=== PATIENT | female | born 1985 ===

== ENCOUNTER 2025-05-04 08:22 | Outpatient (REF) | payer MEDICARE, MEDICAID, SELFPAY ==
--- OUTSIDE RECORDS SUMMARY | 2025-05-05 08:45 | XMS_ITS | Clinical Summary ---
Author Organization [facility] Address [address] [place] [address] [place] [place] [phone] Phone Care Team Providers Care Eligibility Counselor Name Role Phone Roc Mesa NP Primary Care Provider Allergies Active Allergy Reactions Criticality Noted Date Comments Latex 05/08/2018 Medications OXcarbazepine (TRILEPTAL) 300 MG tablet Take 300 mg by mouth 2 (two) times a day. Active albuterol 90 mcg/actuation inhaler inhale TWO puffs EVERY FOUR hours Active amoxicillin (AMOXIL) 500 MG capsule Take 1 capsule by mouth 2 (two) times a day. 5 Active ARIPiprazole (ABILIFY) 5 MG tablet Take 5 mg by mouth every morning. Active WELLBUTRIN SR 200 mg SR 12 hr tablet 5 Active chlorhexidine (HIBICLENS) 4 % external liquid Apply 1 application FOUR TIMES DAILY by topical route 5 Active cholecalcifero l (VITAMIN D3) 2,000 unit capsule TAKE 1 CAPSULE BY MOUTH EVERY WEEK FOR 30 DAYS 4 Active ibuprofen (ADVIL,MOTRIN) 800 MG tablet 3 Active mupirocin (BACTROBAN) 2 % ointment APPLY TO THE AFFECTED AREA(S) THREE TIMES DAILY Active omeprazole (PRILOSEC) 20 MG capsule take 1 capsule by mouth every day for 90 days 4 Active propranoloL (INDERAL) 40 MG immediate release tablet Take 1 tablet by mouth 2 (two) times a day. 5 Active simethicone (MYLICON) 80 mg chewable tablet TAKE 1 TABLET BY MOUTH FOUR TIMES DAILY AFTER meals FOR 15 DAYS 5 Active gabapentin (NEURONTIN) 300 MG capsule Take 300 mg by mouth 3 (three) times a day. 04/12/20 Discontin ued(No longer taking) cloNIDine HCl (CATAPRES) 0.1 MG tablet Take 0.1 mg by mouth every 8 (eight) hours. 04/12/20 Discontin ued(No longer taking) buprenorphine- naloxone (SUBOXONE) 4-[address] 1 Film under the tongue daily. 04/12/20 Discontin ued(No longer taking) trazodone/diet daniel supp. no.8 (TRAZAMINE ORAL) Take by mouth. 04/12/20 Discontin ued(No longer taking) traZODone (DESYREL) 100 MG tablet Take 200 mg by mouth nightly. 04/12/20 Discontin ued(No longer taking) Active Problems Problem Noted Date Diagnosed Date Class 3 severe obesity due t o excess calories with serious comorbidity and body mass index (BMI) of 50.0 to 59.9 in adult 04/12/2025 Osteonecrosis of left hip 04/12/2025 Anxiety 10/29/2023 Lymphedema 10/29/2023 Systolic murmur 10/29/2023 Thrombocytopenic disorder 10/29/2023 Asthma 07/30/2023 Essential hypertension 04/03/2023 Obstructive sleep apnea syndrome 05/18/2020 Bipolar disorder 02/11/2019 Gastroesophageal reflux disease 02/11/2019 Lumbar radiculopathy 02/11/2019 Resolved Problems Problem Noted Date Diagnosed Date Resolved Date Morbid obesity 02/11/2019 04/12/2025 Encounters Date Type Department Care Team Description 04/12/2025 11:56 AM EDT - 04/12/2025 11:59 PM EDT Hospital Encounter [address] [address] Semaj Hawk MD Discharge Disposition: Home or Self Care 04/12/2025 11:15 AM EDT Office Visit [facility] [address] [place] [phone] Semaj Hawk MD Osteonecrosis of left hip (Primary Dx); Pain; Class 3 severe obesity due to excess calories with serious comorbidity and body mass index (BMI) of 50.0 to 59.9 in adult; Obstructive sleep apnea syndrome; Bipolar affective disorder, remission status unspecified from Last 3 Months Social History Tobacco Use Types Packs/Day Years Used Date Smoking Tobacco: Some Days Cigarettes Smokeless Tobacco: Never Tobacco Cessation:Ready to Q uit: Not Asked; Counseling Given: Not Answered Comments:In the process of quitting Alcohol Use Standard Drinks/Week Comments No 0 (1 standard drink = 0.6 oz pur e alcohol) Education Answer Date Recorded Are you interested in more education? Not on kirill e 02/18/2025 Are you concerned about learning? Not on file 02/18/2025 No 02/18/2025 No 02/18/2025 Digital Access Answer Date Recorded No 02/18/2025 No 02/18/2025 Reliable internet access at home? Not on file 02/18/2025 Device with a working camera? Not on file Comments Unknown Sex and Gender Information Value Date Recorded Sex Assigned at Female 05/08/2018 11:09 AM EST Legal Sex Female 10:28 PM EDT Gender Identity Female 05/08/2018 11:09 AM EST Sexual Orientation Straight 05/08/2018 11 :09 AM EST Last Filed Vital Signs Vital Sign Reading Time Taken Comments Blood Pressure 146/92 05/08/2018 2:04 PM EST Pulse 94 05/08/2018 2:04 PM EST Temperature 36.9 C (98.4 F) 05/08/2018 2:04 PM EST Respiratory Rate 14 05/08/2018 2:04 PM EST Oxygen Saturation 98% 05/08/2018 2:04 PM EST Inhaled Oxygen Concentration - - Weight 131.1 kg (289 lb) 05/08/2018 11:05 AM EST Height 174 cm (5' 8.5 ) 05/08/2018 11:05 AM EST Body Mass Index 43.3 05/08/2018 11:05 AM EST Plan of Treatment Upcoming Encounters Date Type Department Care Team (Late st Contact Info) Description 08/12/2025 11:00 AM EST Office Visit [facility] Care [address] [place] [address] Marianna Petersen, CHIEF CARDIOPULMONARY TECHNOLOGIST [address] [facility], [address]nd [place] [address] [email or web address] Health Maintenance Due Date Last Done Comments BLOOD PRESSURE 1984 DEPRESSION SCREENING 1996 SMOKING Hx and SMOKELESS TOBACCO SCREENING 1997 HEPATITIS C SCREENING 2002 HIV ONE-TIME SCREENING (18-65 YEARS) 2002 PAP SMEAR 2005 PNEUMOCOCCAL VACCINES (0-49 years) (2 of 2 - PCV) 04/14/2014 04/14/2013, 05/15/2010 MAMMOGRAM 2024 INFLUENZA VACCINE (#1) 2025 , 02/29/2020, 04/14/2013, Additional history exists COVID-19 VACCINE ( season) 2025 01/24/2022, 05/17/2021, 07/27/2020, Additional history exists Adult Td,Tdap Booster 11/15/2025 11/16/2015 , 09/01/2009, 02/28/2007 HEPATITIS A VACCINES Aged Out No long er eligible based on patient's age to complete this topic HIB VACCINES Aged Out No longer eligi ble based on patient's age to complete this topic MENINGOCOCCAL VACCINES (ACWY) Aged Out No longer eligible based on patient's age to complete this topic MENINGOCOCCAL VACCINES (B) Aged Out N o longer eligible based on patient's age to complete this topic Medical Devices Not on file Procedures Procedure Name Priority Date/Time Associated Diagnosis Comments XR HIP 2 VW LEFT PLUS PELVIS Routine 04/12/2025 12:12 PM EDT Pain from Last 3 Months Results * XR HIP 2 VW LEFT PLUS PELVIS (04/12/2025 12:12 PM EDT) Narrative SYSTEMGENERATED, DOCUMENTATION - 04/12/2025 12:12 PM EDT This image report has been auto-finalized and has not been read by a Radiologist. Interpretation has been included in the provider encounter note for this date of service. Semaj Hawk MD IMG XR PELVIS Final Result from Last 3 Months Insurance [place] & B Member Subscriber Plan / Payer (Ef fective 2023-) Name:Courtney Reyes Member ID:[id number] Relation to Subscriber:Self Name:Courtney Reyes Subscriber ID:[id number] Payer ID:[id number] Group ID:Not on file Type:Medicare Address: [facility] [employer] [email or web address] [address] [place] [address] [place] A [place] B Care Teams Eligibility Counselor Relationship Specialty Start Date End Date Roc Mesa NP [address] [address] PCP - General Nurse Practitioner 02/18/25 Additional Source Comments The information contained in this document represents components of the legal health record. It is not the complete legal health record.[facility]
--- OUTSIDE RECORDS SUMMARY | 2025-05-05 08:45 | XMS_ITS ---
Author Name [facility] Organization Unknown Encounters Encounter Type Encounter Reason Primary Diagnosis Location Date Ambulatory [facility] [place] 05/13/2023 Ambulatory [facility] [place] 04/08/2023 Ambulatory [facility] [place] 03/04/2023 Ambulatory [facility] [place] 01/22/2023
--- OUTSIDE RECORDS SUMMARY | 2025-05-05 08:46 | XMS_ITS | Data Portability ---
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 Yes-weight loss surgery program Referred? AYANNA ALEXANDER-obesity Pt reason for working with nutrition: Struggled with weight all of her life, August fell and broke her leg unable to walk, hip problems-weight loss Misc: groin/hip injury- MRI January 16 to determine if hip or back, prediabetic-hop ing to get on Ozempic (insurance not allowing at this time) Weight history (in pounds): 400 lbs Alimentary/dige stion: loose stool, acid reflux (on medication) Food allergies/intol erances: Supplements: Living environment: mom and two siblings Shops? mom/ Courtney Cooks? mom Diet history: Breakfast: 2 hb eggs Snack: yogurt- flavored, low fat, low annalise Lunch: salad tuna or chx- cukes, griffin pep, onions-leafy greens, honey balsamic Snack: yogurt again, Dinner: meat, veggies Snack: popcorn Beverages: water w crystal light, avoiding juices and sodas General comments: no longer eating out, cut out bread, pasta, starches, keeping lean proteins, skips breakfast, sense this change feels better overall Exercise: mostly immobile due to groin injury-does short walks, seated bike, weights Sleep: Stress levels: High due to current health Barriers/challe nges: immobile, poor relationship with food Goals: 1. Do not skip meals 2. Balance all meals w lean protein, veggie/fruit, healthy fat and complex carbs 1-2 servings/day 3. Seated weight training to support lean muscle growth and enhance metabolic response Education: Sustainable weight loss, metabolic adapting General impression: Courtney is a37 yo female looking to lose weight. She has a long history of dieting and struggling to lose weight. She recently suffered a leg and ankle injury that turned into a groin injury and is immobile-will likely need surgery and wants to lose weight prior to, as well as support her joint health w weight loss. 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 F/U in 2 weeks Plan: Support a sustainable and healthy weight loss Handouts: Recommendations : See above goals Expected compliance: Good casey Not available 01/06/2023 09:26:34 01/20/2023 01/20/2023 Nutrition Follow-Up Weight change: Health changes: Just received results from MRI-found she has osteoporosis in her hips-looking for nutritional intervention for supporting bone health Living environment changes: Diet history: Did not discuss in depth today-Coutrney was very distracted with her MRI results. Wanted to vent about this today Miscellaneous: Barriers/challe nges: Difficult relationship with food and dieting. Has a complex medical history that keeps her limited Education: Sustainable weight loss, metabolic adapting Plan: Support a sustainable and healthy weight loss-discuss bone health and nutrition at next session Handouts: Recommendations : See above goals Impressions/pro sathya: Courtney would not disclose her progress at our visit today-she said she was too distracted with her recent diagnosis of osteoporosis. I did not want to push her as she seemed upset, but I do have the impression she has not been working on some of the goals set at our initial assessment. I told her at our next session I would like to discuss more in-depth her dietary progress and incorporate nutrition for bone health-she was open to this. F/U in 2 weeks Expected compliance: Fair casey Not available 01/20/2023 08:39:46 Plan of Treatment Reminders Order Date Submit Date Provider Last Modified By Organization Details Last Modified Time Details Appointments None recorded. Lab HbA1c (hemoglobin A1c), blood 2022 023 [facility], [address] [place], [address], 3 13:07:10 TSH, serum or plasma 2022 023 [facility], [address] [place], [address], 3 17:14:07 BMP, serum or plasma 2022 023 [facility], [address] [place], [address], 3 12:57:16 HbA1c (hemoglobin A1c), blood 2022 023 In-Office Order, Internal Use Only DO Not Attach Compendium DO Not Attach Compendium, Do Not Delete/merge, [id number] 3 10:25:22 Referral nutritionis t/dietitian referral 2022 023 [email or web address] Harvey Bradzi HIMS CLERK, [address] [facility], [facility], [place], [address], 3 15:41:06 Procedures None recorded. Surgeries None recorded. Imaging None recorded. Medication Orders Wegovy 0.25 mg/0.5 mL subcutaneou s pen injector 2022 023 [facility], [address] [place] [address], [id number], 3 15:43:38 metformin 500 mg tablet 2022 023 [facility], [address] [place] [address], [id number], 3 15:43:44 lisinopril 10 mg tablet 2022 023 [email or web address] 3 [facility], [address] [place] [address], [id number], 3 13:26:07 Ozempic 0.25 mg or 0.5 mg (2 mg/3 mL) subcutaneou s pen injector 2022 023 [facility], [address] [place] [address], [id number], 10:27:29 Patient TargetsNo targets recorded. Patient Instructions Encounter Date Encounter Id Patient Instructions Last Modified By Organization Details Last Modified Time 01/03/2023 [id number] high blood pressure: care instructions Not available 01/03/2023 10:27:19 learning about high blood pressure Not available 01/03/2023 10:27:19 When You Want to Lose Weight: Care Instructions Not available 01/03/2023 10:27:20 TEACHING PHYSICIAN NOTE: This patient was seen under my direction, I reviewed the patient history and examination. I discussed the case with the resident and I agree with the assessment and plan. Eliazar Hairston MD [email or web address] Not available 01/03/2023 12:19:29 01/20/2023 [id number] Goals: 1. Do not skip meals 2. Balance all meals w lean protein, veggie/fruit, healthy fat and complex carbs 1-2 servings/day 3. Seated weight training to support lean muscle growth and enhance metabolic response 4. Incorporate dark leafy greens, nuts, eggs, legumes, lean protein and dairy that can be tolerated for bone health casey Not available 01/20/2023 08:41:13 02/05/2023 [id number] high blood pressure: care instructions Not available 02/05/2023 16:43:49 learning about high blood pressure Not available 02/05/2023 16:43:50 Discussed w resident by phone. Recent fall, fx ankle, hip pain, more disabled and needing wheelchair. 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 [email or web address] Not available 02/06/2023 15:08:04 03/18/2023 [id number] When You Want to Lose Weight: Care Instructions [email or web address] Not available 03/18/2023 15:42:32 I certify that this resident saw this patient under my supervision; and that the history, exam, assessment, orders and plans were reviewed and generally agreed upon concerning this visit. 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 Refer ral for Morbid obesity Referring Physician: Ayanna Alexander, Internal Medicine, Encounter Date: 01/03/2023 Results Created Date Observation Date Name Description Value Unit Range Abnormal Flag Note LastModifiedBy Organization Detail LastModifiedTime 01/04/2001/03/2023 HbA1c (hemo globi n A1c), blood HbA1c 5.6% Not Available In-Office Order Internal Use Only DO Not Attach Compendium DO Not Attach Compendium, Do Not Delete/merge, [id number] 01/03/2023 09:53:24 01/14/2001/13/2023 BASIC METAB OLIC PANEL sodium 141 mEq/L 135-14 5 normal Not Available [address], [address], 01/13/2023 12:57:16 01/14/2001/13/2023 BASIC METAB OLIC PANEL potassium 4.5 mEq/L 3.5-5. 1 normal Not Available [address], [address], 01/13/2023 12:57:16 01/14/2001/13/2023 BASIC METAB OLIC PANEL chloride 108 mEq/L 98-112 normal Not Available [address], [address], 01/13/2023 12:57:16 01/14/2001/13/2023 BASIC METAB OLIC PANEL carbon dioxide 28 mEq/L 20-32 normal Not Available [address], [address], 01/13/2023 12:57:16 01/14/20 23 01/13/2023 BASIC METAB OLIC PANEL anion gap 5 mEq/L 5-15 normal Not Available [address], [address], 01/13/2023 12:57:16 01/14/20 23 01/13/2023 BASIC METAB OLIC PANEL blood urea nitrogen (BUN) 15 mg/dL 4-18 normal Not Available [address], [address], 01/13/2023 12:57:16 01/14/20 23 01/13/2023 BASIC METAB OLIC PANEL creatinine 0.71 mg/dL 0.00-1 .20 normal Not Available [address], [address], 01/13/2023 12:57:16 01/14/20 23 01/13/2023 BASIC METAB OLIC PANEL est.glomerul ar filtration rate > 60 Units : mL/mi n/1.7 3 m2 Estim ated GFR (eGFR ) shoul d not be used for patie nts with acute kidne y injur y or ESRD (crea tinin e shoul d be at stead y state and stabl e to use). eGFR is calcu lated using the 2009 CKD-E PI creat inine equat ion, which is now the recom karen d equat ion to estim ate GFR based on creat inine per lates t KDIGO (Kidn ey Disea se Impro ving Globa l Outco mes) Guide lines . KDIGO recom mends CKD now be class ified based on cause , GFR categ ory, and album inuri a categ ory. GFR categ ories will not be repor aktiuska by the lab for G1 or G2 (eGFR >60). GFR categ ories shoul d be assig alec as: eGFR 45-59 = G3a (mild ly to moder ately decre ased) , eGFR 30-44 = G3b (mode ratel y to sever martinez decre ased) , eGFR 15-29 G4 (pk rely decre ased) , eGFR< 15 G5 (kidn ey failu re). Not Available [address], [address], 01/13/2023 12:57:16 01/14/20 23 01/13/2023 BASIC METAB OLIC PANEL glucose 93 mg/dL 70-100 normal Fasti ng Refer ence Inter landon: 70-10 0mg/d L Non-f astin g Refer ence Inter landon: 70-14 0mg/d L Not Available [address], [address], 01/13/2023 12:57:16 01/14/20 23 01/13/2023 BASIC METAB OLIC PANEL calcium 8.8 mg/dL 8.1-10 .4 normal Not Available [address], [address], 01/13/2023 12:57:16 03/18/20 23 03/18/2023 THYRO ID STIMU LATIN G HORMO NE thyroid stimulating hormone 1.94 uIU/m L 0.35-4 .94 normal Pleas e note new refer ence range . Not Available [address], [address], 03/18/2023 17:14:07 03/18/20 23 03/20/2023 HEMOG LOBIN A1C hemoglobin A1C 5.6 % 4.4-6. 3 normal Not Available [address], [address], 03/20/2023 13:07:10 01/10/20 23 01/09/2023 US, duple x, venou s, lower extre mity, unila teral [facility] [employer] [facility] [employer] [facility] [address] [place] [id number] Ultras ound Report Signed Patien t: Dagmar Reyes 7202 : [address]: Alicia Shaw am, CHP, MD EMR ID: [id number] Age: 37 E.D. Attend ing: Acct: [id number] [facility]: Meri Snyder MD Admit/ Svc Date: Orderi ng Physic kwesi: Alicia Shaw am, MD - ERNSTP Date of Servic e: Proced ure(s) : US venous duplex LE LT Reason for Exam: Pain in left lower limb?D VT Access ion Number (s): [id number] Fax to: cc: Alicia Shaw am, MD - CHP US venous duplex LE LT HISTOR Y: 37 years Female with Pain in left lower limb?D VT, leg pain COMPAR FREDDY: No prior study is availa ble for compar freddy. TECHNI QUE: Compre ssion cabrera scale, color and spectr al (wavef orm) Dopple r sonogr aphy of the lower extrem ity deep vein system . FINDIN GS: There is a normal patter n of augmen katiuska Dopple r venous outflo w and compre ssibil ity in the common femora l, superf icial femora l and poplit eal veins of the leg. The visual ized portio ns of the deep femora l vein, greate r saphen ous vein, and mixing picker tender ior tibial veins are also patent . No fillin g defect s are demons trated . Imagin g of the contra latera l common femora l vein is normal . IMPRES COLTON: No eviden ce for deep vein thromb osis. Statio n: [id number] Electr onical ly signed on at 0801 by Kody rasheed MD. MMAXWE LL2 [facility] (Radiology) [address] [place] [address], [address], 02/04/2023 15:12:22 Result Notes None recorded. 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 [facility] 3 15:18:45 Spasm of back muscles 418345981 [facility] 3 15:18:45 Closed fracture subluxati on of ankle joint 296571080 [facility] 3 15:18:45 Accidenta l fall Active [facility] 3 15:18:45 Lymphedem a [id number] [facility] 15:18:45 Chlamydia trachomat is infection [id number] [facility] 3 15:18:45 Lumbosacr al radiculop athy 4461683 [facility] 3 15:18:45 Low back pain 682299347 [facility] 3 15:18:45 Low back strain 270113534 [facility] 3 15:18:45 Thrombocy topenic disorder [id number] [facility] 3 15:18:45 Systolic murmur 11988306 [facility] 3 15:18:45 Vitamin D deficienc y 04857366 [facility] 3 15:18:45 Facial laceratio n 827693869 [facility] 3 15:18:45 Menorrhag ia 275903090 [facility] 3 15:18:45 Onychomyc osis of toenails 015270788 [facility] 3 15:18:45 Blepharit is 36436230 [facility] 3 15:18:45 History of surgical procedure on mouth 289744441 [facility] 3 15:18:45 Anxiety 49262951 [facility] 3 15:18:45 Acute conjuncti vitis 53343958 [facility] 3 15:18:45 Normal cytology findings 1262299 [facility] 3 15:18:45 Pustular acne 52783773 [facility] Angela david, [facility] 3 15:18:45 Foot-drop [id number] [facility] 3 15:18:45 Otitis media 58510477 [facility] 3 15:18:45 Benign intracran ial hypertens ion [id number] [facility] 3 15:18:45 Nerve root disorder 49637187 [facility] 3 15:18:46 Contusion of head [id number] [facility] 3 15:18:46 Intrauter ine contracep tive device in situ 446502610 [facility] 3 15:18:46 Foreign body in ear [id number] [facility] 3 15:18:46 Smoker [id number] [facility] 3 15:18:46 Kidney stone 27753475 [facility] 3 15:18:46 Lumbar radiculop athy 807108391 Active 2018 Marainna Nails MD [address] [place] [address], [id number] 9 17:12:38 Bipolar disorder 18811597 Active 2018 Marianna Nails MD [address] [place] [address], [phone], [facility] [employer] [facility] 9 17:12:53 Morbid obesity 398239072 Active 2018 [facility] 3 15:18:45 Gastroeso phageal reflux disease 634622251 Active 2018 Marianna Nails MD [address] [place] [address], [phone], [facility] [employer] [facility] 9 17:13:11 Sleep disorder 72042115 Active 2019 [facility] [employer] [facility] 3 15:18:45 Obstructi ve sleep apnea syndrome 59408672 Active 2019 [facility] [employer] [facility] 3 15:18:46 Body mass index 40+ - severely obese 146192119 Active 2022 Nicole Wong MD [address] [place] [address], [phone], [facility] [employer] [facility] 3 15:47:43 Chronic back pain 895818786 Active 2022 Angela Vigil [facility] 3 15:18:45 Pain of left hip joint 786508386787 100 Active 2022 Estevan Gilliland [employer] [facility] [employer] [facility] 3 11:44:50 Problem Notes None recorded. Procedures Surgical History Date Name Laterality Status Provider Name and Address Organization Details Recorded Time 3 Back Surgery completed Rosibel Kasper [facility] [employer] [facility] 11/19/2018 14:36:37 Imaging Results None recorded. Procedure Notes None recorded. Medical Equipment None Reported. Allergies Allergen ID Allergen Name Allergen Category Reaction Reaction Severity Criticality Documentation Date Start Date Code Code System Note Provider Name and Address Organization Details Recorded Time 860276 latex environme nt,medica tion Not available Not available Not available 01/23/20222021 15154 91 RxNorm [facility] [employer] [facility] 3 15:18:27 Medications Name Sig Start Date Stop Date Status Note LastModified by Organization Details LastModified Time Prescripti on - Prior Authorizat ion Request active Not Available Not Available Not Available quetiapine 25 mg tablet 02/27 completed Not Available Not Available Not Available cyclobenza ana 10 mg tablet Take 1 tablet every day by oral route as needed for 30 days. active Not Available Not Available No t Available Tussin DM 10 mg-100 mg/5 mL oral syrup 02/27 completed Not Available Not Available Not Available amoxicilli n 500 mg capsule 11/08 completed Not Available Not Available Not Available metformin 500 mg tablet Take 1 tablet twice a day by oral route. 2022 active Not Available Not Available Not Avai lable neomycin-p olymyxin-h ydrocort 3.5 mg/mL-10,0 00 unit/mL-1 % ear solution 02/11 completed Not Available Not Available Not Available oxcarbazep ine 150 mg tablet 450mg in the am and 600 mg at bedtime 02/11 completed Not Available Not Available Not Available clonidine HCl 0.1 mg tablet 1 tablet po every 8hrs as needed 02/27 completed Not Available Not Available Not Available gabapentin 600 mg tablet Take 1 tablet 3 times a day by oral route for 30 days. active Not Available Not Available No t Available doxycyclin e hyclate 100 mg capsule 11/19 completed Not Available Not Available Not Available trazodone 50 mg tablet TAKE ONE-HALF TABLET BY MOUTH AT BEDTIME FOR SLEEP active Not Available Not Available No t Available cetirizine 10 mg tablet Take 1 tablet every day by oral route for 30 days. active Not Available Not Available No t Available azithromyc in 250 mg tablet 01/23 completed Not Available Not Available Not Available ibuprofen 800 mg tablet 01/18 completed not taking Not Available Not Available Not Available nicotine (polacrile x) 2 mg gum Chew 1 piece of gum every 3-4 hours by oral route for 42 days. 01/18 completed not taking Not Available Not Available Not Available citalopram 10 mg tablet 11/08 completed Not Available Not Available Not Available valacyclov ir 1 gram tablet 07/29 completed Not Available Not Available Not Available cephalexin 250 mg capsule 01/23 completed Not Available Not Available Not Available prednisone 20 mg tablet Take 1 tablet 3 times a day by oral route as directed for 5 days. 01/03 completed Not Available Not Available Not Available gabapentin 400 mg capsule Take 1 capsule 3 times a day by oral route for 30 days. 12/24 completed Not Available Not Available Not Available oxcarbazep ine 300 mg tablet TAKE 1 TABLET BY MOUTH TWICE DAILY active Not Available Not Available No t Available sulfametho xazole 800 mg-trimeth oprim 160 mg tablet 02/27 completed Not Available Not Available Not Available bupropion HCl SR 100 mg tablet,12 hr sustained- release TAKE 1 TABLET BY MOUTH EVERY MORNING active Not Available Not Available No t Available dextrometh orphan-gua ifenesin 5 mg-50 mg/5 mL oral syrup 10 mL by oral route. 01/07 completed Not Available Not Available Not Available oxycodone- acetaminop hen 5 mg-325 mg tablet 11/30 completed Not Available Not Available Not Available clonidine HCl 0.2 mg tablet take one tablet po at bedtime 05/18 completed Not Available Not Available Not Available trazodone 100 mg tablet 05/18 completed Not Available Not Available Not Available benzonatat e 100 mg capsule TAKE 1 CAPSULE BY MOUTH THREE TIMES DAILY BY MOUTH 15 DAYS active Not Available Not Available No t Available doxycyclin e monohydrat e 100 mg capsule 11/30 completed not taking Not Available Not Available Not Available cephalexin 500 mg capsule 01/23 completed Not Available Not Available Not Available ranitidine 150 mg tablet Take 1 tablet twice a day by oral route in the morning for 30 days. 11/08 completed Not Available Not Available Not Available lisinopril 10 mg tablet Take one tablet every day by oral route. active Not Available Not Available No t Available nicotine 21 mg/24 hr daily transderma l patch Apply 1 patch every day by transder mal route for 42 days. 05/18 completed Not Available Not Available Not Available gabapentin 300 mg capsule Take 1 capsule 3 times a day by oral route for 30 days. 10/23 completed Not Available Not Available Not Available omeprazole 20 mg capsule,de layed release Take one capsule by mouth every morning active Not Available Not Available No t Available oxcarbazep ine 600 mg tablet 1 tab bid 03/18 completed Not Available Not Available Not Available mirtazapin e 15 mg tablet 05/18 completed Not Available Not Available Not Available gabapentin 100 mg capsule Take 1 capsule 3 times a day by oral route for 30 days. 02/27 completed Not Available Not Available Not Available ergocalcif andreea (vitamin D2) 1,250 mcg (50,000 unit) capsule active Not Available Not Available Not Available ibuprofen 600 mg tablet Take 1 tablet 3 times a day by oral route as needed for 30 days. active Not Available Not Available No t Available methylpred nisolone 4 mg tablets in a dose pack 11/19 completed Not Available Not Available Not Available albuterol sulfate HFA 90 mcg/actuat ion aerosol inhaler Inhale 2 puffs every 4 hours by inhalati on route for 30 days. active Not Available Not Available No t Available morphine 15 mg immediate release tablet active Not Available Not Available Not Available fluticason e propionate 50 mcg/actuat ion nasal spray,susp ension USE 1 SPRAY EVERY DAY intranas ally FOR 30 DAYS active Not Available Not Available No t Available Hibiclens 4 % topical liquid 02/11 completed Not Available Not Available Not Available loratadine 10 mg tablet Take 1 tablet every day by oral route for 30 days. 02/27 completed Not Available Not Available Not Available amoxicilli n 875 mg-potassi um clavulanat e 125 mg tablet TAKE 1 TABLET BY MOUTH EVERY 12 hours FOR SEVEN DAYS active Not Available Not Available No t Available bupropion HCl SR 200 mg tablet,12 hr sustained- release in am 03/18 completed Not Available Not Available Not Available aripiprazo le 10 mg tablet 06/10 completed Not Available Not Available Not Available aripiprazo le 15 mg tablet One tablet once a day 03/18 completed Not Available Not Available Not Available aripiprazo le 5 mg tablet TAKE 1 TABLET BY MOUTH EVERY MORNING active Not Available Not Available No t Available aripiprazo le 2 mg tablet 11/19 completed Not Available Not Available Not Available cholecalci ferol (vitamin D3) 1,250 mcg (50,000 unit) capsule 1 Capsule every week for 12 weeks. 2022 active Not Available Not Available Not Avai lable diclofenac 1 % topical gel APPLY 2 GRAMS TO THE AFFECTED AREA(S) BY TOPICAL ROUTE 4 TIMES PER DAY as needed for pain 02/27 completed Not Available Not Available Not Available Mucus Relief ER 600 mg tablet, extended release Take 1 tablet every 12 hours by oral route as needed for 10 days. 02/27 completed Not Available Not Available Not Available buprenorph ine 2 mg-naloxon e 0.[address] TWO FILMS UNDER THE TONGUE EVERY DAY 11/19 completed Not Available Not Available Not Available Vitamin D3 50 mcg (2,000 unit) capsule TAKE 1 CAPSULE BY MOUTH EVERY WEEK FOR 30 DAYS active Not Available Not Available No t Available Compact Space Chamber active Not Available Not Available Not Available Robitussin Cough-Ches t Congestion DM 5 mg-100 mg/5 mL oral liquid Take 10 mL by oral route as needed for 7 days. 02/27 completed Not Available Not Available Not Available Rybelsus 3 mg tablet 03/18 completed Not Available Not Available Not Available Wegovy 0.25 mg/0.5 mL subcutaneo us pen injector Inject 0.25 mg by subcutan eous route. 2022 active Not Available Not Available Not Avai lable Ozempic 0.25 mg or 0.5 mg (2 mg/3 mL) subcutaneo us pen injector active Not Available Not Available Not Available Vitals Date Recorded Systolic And Diastolic Provider Name and Address Organization Details Last Updated DateTime 01/03/2023 158/100 mm[Hg] Ayanna Alexander MD [address] [place], [address], [place] [facility] [employer] [facility] 01/03/2023 11:42:55 Date Recorded Body height Body mass index (BMI) Body weight Heart rate Oxygen saturation Oxygen saturation in Arterial blood by Pulse oximetry Systolic And Diastolic Provider Name and Address Organization Details Last Updated DateTime 3 172.72 cm 60.8 kg/m2 350373. 95 g 99 /min 98 % 98 % 163/81 mm[Hg] Portia Casper CMA [place] [facility] 09:11:09 Date Recorded Body height Heart rate Oxygen saturation Oxygen saturation in Arterial blood by Pulse oximetry Respiratory rate Body temperature Systolic And Diastolic Provider Name and Address Organization Details Last Updated DateTime 3 172.72 cm 74 /min 93 % 93 % 16 /min 97.8 [degF] 116/82 mm[Hg] Angela Vigil [place] - [facility] [employer] [facility] 3 15:25:17 Date Recorded Body height Body temperature Respiratory rate Oxygen saturation Oxygen saturation in Arterial blood by Pulse oximetry Heart rate Systolic And Diastolic Provider Name and Address Organization Details Last Updated DateTime 3 172.72 cm 99.8 [degF] 16 /min 96 % 96 % 102 /min 107/47 mm[Hg] Esthela Mora CMA [facility] [employer] [facility] 3 14:49:20 Social History Question Answer Notes LastModified by Organizat ion Details LastModified Time Tobacco Smoking Status Former Smoker currently quiting using the patch 12/16/19 Ashia david [facility] [employer] [facility] 07/29/2022 15:34:02 Do You Have An Advance Directive? No Information not available 11/19/2018 What Is Your Level Of Caffeine Consumption? Moderate Information not available 11/19/2018 How Much Tobacco Do You Chew? None Information not available 11/19/2018 Which Illicit Or Recreational Drugs Have You Used? None Information not available 11/19/2018 Hard Of Hearing Or Deaf In One Or Both Ears? No Information not available 11/19/2018 Legally Blind In One Or Both Eyes? No Information not available 11/19/2018 Foreign Travel No Informatio n not available 11/19/2018 Do You Have A Family History Of Mental Health Or Substance Abuse? Yes Information not available 11/19/2018 Have You Ever Experienced Any Trauma Such As A Sexual Assault, Domestic Violence, Combat Experience, A Sudden Of A Loved One, Or Anything That Made You Excessively Afraid? Yes - Past Information not available 11/19/2018 Language Sierra Leonean Information no t available 11/19/2018 Country Of Origin [facility] Information not available 11/19/2018 Dietary Regular Information no t available 11/19/2018 Marital Status Single Informatio n not available 11/19/2018 What Was The Date Of Your Most Recent Tobacco Screening? 02/05/2023 [email or web address] Information not available 02/05/2023 How Many Children Do You Have? 1 Information not available 11/19/2018 Obese Yes Information no t available 11/19/2018 Overweight Yes Information no t available 11/19/2018 Seat Belts Used Routinely Yes Information not available 11/19/2018 Smoke Alarm In Home Yes Information not available 11/19/2018 At What Age Did You Start Smoking Tobacco? 17 Information not available 11/19/2018 How Much Tobacco Do You Smoke? 0.25 PPD 2 Cigaretts Per Day Information not available 11/09/2019 General Stress Level Medium Information not available 11/19/2018 Do You Use Sunscreen Routinely? Yes Information not available 11/19/2018 Sex: Female Functional Status Question Answer Note LastModified by Organizat ion Details LastModified Time What is your level of alcohol consumption? Occasional Information not available 11/19/2018 Do you or have you ever used smokeless tobacco? Never used smokeless tobacco Information not available 11/09/2019 What is your occupation? unemployed 05/29/18- patient has had back surgery Information not available 11/19/2018 Do you or have you ever used e-cigarettes or vape? Never used electronic cigarettes Information not available 11/09/2019 What is your exercise level? None Information not available 11/19/2018 Mental Status None recorded. Family History Relationship Description Onset Age of this Age Resolved Age Notes LastModified by Organization Details LastModified Time Maternal Grandfather Essential hypertension Heart Diseas e Not available 11/19/2018 14:33:35 Medical History Condition Response Anxiety/Depression Y Neuropathy Y Insomnia Y Gynecological HistoryNo gynecological history recorded. Obstetrics History GPAL:G 0 P 0 0 0 0 Immunizations Vaccine Type Date Status Note Provider Nam e and Address Organization Details Recorded Time Influenza, split virus, trivalent, preservative 5 completed Tonya david [place] [facility] 12/21/2012 09:41:39 Hep B, unspecified formulation 6 completed Angela Vigil [facility], [facility] 02/05/2023 15:19:03 Pneumococcal Conjugate, unspecified formulation 0 completed Tonya Dente [facility] 12/21/2012 09:47:35 Td(adult) unspecified formulation 7 completed Angela Vigil [facility] 02/05/2023 15:19:03 Influenza, split virus, trivalent, preservative 1 completed Tonya Dente [facility] 12/21/2012 09:47:35 Td(adult) unspecified formulation 0 completed Tonya Dente [facility] 12/21/2012 09:47:35 HPV, unspecified formulation 8 completed Angela Vigil [facility] 02/05/2023 15:19:03 Influenza, split virus, trivalent, preservative 0 completed Tonya Dente null, [facility] 12/21/2012 09:51:54 COVID-19, mRNA, LNP-S, PF, 30 mcg/0.3 mL dose 1 completed Angela Vigil [facility] 02/05/2023 15:19:03 COVID-19, mRNA, LNP-S, PF, 30 mcg/0.3 mL dose 1 completed Angela Vigil [facility] 02/05/2023 15:19:03 COVID-19, mRNA, LNP-S, PF, 30 mcg/0.3 mL dose 1 completed Angela Vigil [facility] 02/05/2023 15:19:03 COVID-19 mRNA, bivalent, original/Omicron BA.1, Non-US Vaccine (Spikevax Bivalent), Moderna 2 completed Angela Vigil [facility] 02/05/2023 15:19:03 Td(adult) unspecified formulation 7 completed Angela Vigil [facility] 12/24/2022 15:23:08 [facility]dap 6 [facility] 15:19:03 Hep B, unspecified formulation 6 [facility] 12/24/2022 15:23:08 HPV, unspecified formulation 8 [facility] 12/24/2022 15:23:08 Influenza, split virus, trivalent, preservative 0 [facility] 02/05/2023 15:19:03 pneumococcal polysaccharide PPV23 3 completed Angela Vigil [facility] 02/05/2023 15:19:03 TST-PPD intradermal 3 completed Angela Vigil [facility] 02/05/2023 15:19:03 Influenza, split virus, trivalent, preservative 3 [facility]/05[facility]23 15:19:03 Influenza, split virus, trivalent, preservative 2 completed Angela Vigil [facility] 02/05/2023 15:19:03 Past Encounters Encounter ID Performer Location Encounter Start Date Encounter Closed Date Diagnosis/Indication Diagnosis SNOMED-CT Code Diagnosis ICD10 Code Diagnosis IMO Codes Diagnosis Note [id number] Marianna Nails MD [address] [address] 11/19/2018 14:03:38 11/19/2018 15:22:11 History of lumbar discectomy [id number] Z98.890 Patient doesn't have any neurologic deficit or decreased ROM at the moment.We discussed that he should still work with PT but she mentioned her insurance considers the lymphedema clinic as PT she cannot go now.She also asked for a prescripti on of gabapentin and flexeril claiming that she run out but upon checking [facility] it looks like it hadn't been prescribed for the past 6 months. She agreed to only take Flexeril for now and work with PT,also send us record from prior PT visits and then we can reassess her need for medical leave or disability . Foot pain 16718504 M79.6 72 Patient mentioned occasional pain in her left foot and that she has noticed that her left foot arch is more flat than the R.She would like a podiatry referral. [id number] Marianna Nails MD [address] [place] [address] 12/17/2018 16:01:29 12/17/2018 16:44:05 Lumbar radiculopathy [id number] M54.16 Patient reports that the foot drop she had since April prior to the surgeries has improved slightly but is still limiting her DEANNA.She says she doesn;t go outside or go grocery shopping because she is afraid of the pain she will feel in her left foot and not being able to stand properly on her left leg.She reports that she uses a cane when she knows she has to walk more than a small distance (ie car to door).Some times numbness and tingling wake her up at night. She had EMG and NCS done by Dr.weiskop glynn (neurologi st ) in April 2018 prior to the surgeries which showed L5 radiculopa thy. On physical exam today,stre ngth is normal in the left foot,and sensation is grossly intact,onl y has some altered sensation in the tip of the left big toe.She didn;t see a wage hand as we discussed the last time but did go to PT and will follow with the lymphedema clinic starting January 04. 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 For pain she will use Tylenol,Ad myriam and Flexeril PRN.She was counseled on quiting smoking and losing weight. [id number] Marianna Nails MD [address] [place] [address] 02/11/2019 15:22:15 02/11/2019 16:18:49 Left foot drop [id number] 70575 M21.372 Saw neurology, had lumbar spine MRI and EMG that showed the same findings of L5 radiculopa thy.All blood workup was negative.S he will see neurology again in 3 weeks.SHe takes ibuprofen 800mg twice daily and flexeril for pain and it is well controlled .We discussed the importance of losing weight and staying active and she will also see podiatry today.We will discuss again after neurology recommenda tions. Morbid obesity 397254192 E66.01 BMI:49.1.S he said she stopped drinking soda for the past 3 months and she has lost 3 pounds since last time.We discussed about portion control and exercise but she would also like a referral for possible weight loss surgery. Gastroesop hageal reflux disease [id number] K21.9 Chronic symptoms of heartburn. She will try Zantac 150 BID for now because she is taking ibuprofen daily. [id number] Marianna Nails MD [address] [place] [address] 04/29/2019 16:00:29 04/29/2019 16:48:46 Administrative reason for encounter [id number] Z02.9 Filled out paperwork for DMV.I explained to Courtney that I cannot say there is no risk in driving with her current medication s as they could cause HIMS CLERK depression leading to somnolence .She denies any other drug use,alcoho l,increasi ng the dose of her meds by herself.NO focal neurologic deficit at the moment.a copy of the filled out form was kept in file.the form says that Courtney is followed at the clinic for bipolar disorder and that the chronic medication s she is taking could potentiall y cause HIMS CLERK depression so they might interfere with the patient's ability to drive.I also mentioned that given her obesity there could also be a component of MIRIAN for which we had ordered a sleep studu in the past and she mentioned that she has the appointmen t within the month.Adrian bañuelos says she understand s the possible implicatio ns of the above mentioned comments on the paperwork and agrees with the plan. [id number] Esthela Mojica MD [address] [address] 09/29/2019 10:56:05 09/29/2019 14:07:11 Lumbar radiculopathy [id number] M54.16 Courtney has history of lumbar radiculopa thy and left foot drop, had surgery of back in 04/2018, after which his functional ly ability got limited. 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 She is currently on conservati ve management with Tylenol, Flexeril and physical therapy, wears special boot for left foot drop, that could help her with walk and balance.Pa per work was filled for 3 month restrictio n from work, during that time she will continue current management along with self physical therapy as PT is closed due to COVID-19.P atient was instructed to schedule clinic appointmen t in 3 months to be re-evaluat ed and she may be able to do work in which she can do more like clinic work or work that can be done with sitting and less walking.Fl exeril renewed. Gastroesop hageal reflux disease [id number] K21.9 Patient has history of GERD and now she has been taking Ibuprofen regularly, was instructed to take Omeprazole as long as she is on Ibuprofen to prevent peptic ulcers or GI bleed. [id number] JOHN VALLEJO MD [address] [address] 11/09/2019 13:39:35 11/10/2019 08:30:27 Wheezing 53696446 R06.2 does report wheezing w/o SOB, alleviated by albuterol. Denies any associatio n with exercises. Reports some watery eye discharge that worse in summer and spring and that her daughter has asthma, pt might have some allergic component. She also smokes and morbidly obese. We will start her on albuterol and cetirizine and schedule appt when covid pandemic resolves for further evaluation as well as . Tobacco de pendence syndrome 54180818 F17.200 Smokes 1 PPD for 14 years about 1 week ago started to decrease the amount and now on 5 cig/day. She would like to quit smoking, so we will start her on nicotine patch as well as lozenges for breakthrou gh. She was instructed about quitting goal and time to initiate therapy. 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 SHe has hx of foot drop as well as radiculopa thy s/p 2 back surgeries in 2012 and 2017. Reportedly she can not toileting as well as do a grocery shopping because of severe leg weakness as well as foot drop, tingling and leg pain. Papers were filled in. Reportedly she has to ambulate with cane at home. [id number] Marianna Nails MD [address] [place] [address] 12/16/2019 13:10:17 12/16/2019 15:20:55 Pain of right heel [id number] 848389 M79.671 Subacute,s tarted last month.Wors e in the morning, aggravated by a lot of walking, improved with Tylenol/Mo vikash and rest. She does recall an injury after falling before the pain started when she was walking as part of her new exercise routine.We discussed that this could be related to that injury, or could be due to plantar fasciitis. We will put in a referral for PT for possible orthotic boot to wear during the night and she will continue Tylenol and Motrin for the pain. She will call if any changes. She agrees with the plan. Obstructiv e sleep apnea syndrome 69898216 G47.33 Diagnosed by sleep study 10/2019 (last sleep study in 2007). Patient is unable to wearing the CPAP machine at night if prescribed . She actually reports that the use did need study and it helped her sleep better. [id number] Marianna Nails MD [address] [place] [address] 05/18/2020 14:00:53 05/19/2020 09:01:33 Obstructive sleep apnea syndrome 16302440 G47.33 Diagnosed by sleep study in 10/2019.No acut complaints ,still snores and has episodes of apnea as witnessed by her daughter who lives with her.Has not gotten her CPAP from [facility],u nclear why.I will renew the referral. Fit to return to work 30 [id number] Z76.89 Patient wanted a note for her work as mentioned in the HPI stating she can do the tasks described in the paperwork she provided.A note was given to the patient stating she can perform the tasks described [id number] JOHN VALLEJO MD [address] [place] [address] 10/16/2020 13:22:17 10/16/2020 14:56:16 Low back pain 470557533 M54.5 34-year-ol d female with chronic problems of lumbar radiculopa thy s/p left foot drop, morbid obesity, bipolar disorder here w c/o of back pain. reportedly it started last Friday when she bended forward over sofa and experience d severe back pain. It was 10/10 on scale. Pt denies any new symptoms of numbness and tingling as well as lower extremity. Pt denies any numbness in the groins as well as problems to control her defecation and urination. She visited ER last week and was started on flexeril. Pt was off work for past couple days and her condition improved. Reportedly she is able to ambulate more comfortabl y at this point. 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 Her presentati on likely due to muscle strain as she does not have any new neurologic symptoms vs radiculopa thy vs facet arthritis. Will provide letter for work as well as send pt for physical therapy. Pt is scheduled for EMG. Lumbar radiculopathy [id number] M54.16 was seen and evaluated by neurologis t, EMG was ordered. Pt will benefit from physical therapy, order was placed [id number] Ayanna Alexander MD [address] [place] [address] 11/30/2020 10:47:12 11/30/2020 11:35:26 Post-discharge follow-up [id number] Z09 Patient presented to [facility] clinic for follow-up of her urgent care visit for cellulitis . She was diagnosed with right great toe cellulitis and was prescribed Keflex 750 mg 3 times daily for 7 days. Patient will complete her antibiotic course tomorrow. She reported that her swelling and foot pain is improving. Her blister also got improved. Patient agreed for annual health visit in 1 month. Pain in right foot [id number] 08761 M79.671 Patient also complains of right-side d lateral foot pain for 5 days which is burning in nature, exacerbate d by standing and resting and not relieved by taking Tylenol. The cause of her foot pain could be improper footwear. Less likely plantar fasciitis or stress fracture. Plan: Will refer to wage hand for further management . Will prescribe diclofenac gel 4 times in a day as needed for pain for 5 to 7 days. [id number] Ayanna Alexander MD [address] [place] [address] 05/02/2021 15:54:25 05/02/2021 16:52:30 Pain of left heel [id number] 062485 M79.672 35-year-ol d obese woman with medical history significan t for lumbar radiculopa thy with partial foot drop status post 2 spinal surgeries called [facility] clinic for worsening left heel pain. Patient describes the pain as a sore, nonradiati ng, stays throughout the day. Her pain aggravates by prolonged standing and relieved by lying down. Patient was taking Motrin and Tylenol with minimal effect. She denies any worsening weakness, stiffness or injury to the left foot. During the last couple of months patient changed her shoes multiple times and she does not think that her shoes are causing any trouble to her feet. Based on her history it seems like her presentati on is more likely plantar fasciitis, it could be heel spur. Less likely Achilles tendinitis . It is unlikely for worsening neuropathy as how patient described her pain.Steve cannon was referred to wage hand previously and she thinks it didn't help her at all.Cookie london reported that she is using stretching footpads from her mother which is helping her foot painPlan:- Patient is advised to use heel pad under her sneakers for her pain.-Prop er footwear-W ill refer to physical therapy for probable orthotic boot-Steve cannon is also advised to use Ice on her foot which will help to relieve her heel pain.-Will prescribe as needed diclofenac gel for her pain [id number] Nicole Wong MD [address] [address] 07/05/2021 11:04:51 07/06/2021 15:16:12 Gastroesophageal reflux disease [id number] K21.9 Wheezing [id number] R06.2 Acute COVID-19 [id number] 8 U07.1 Patient tested COVID-posi tive 2 days ago, and states she was tested few times this week for upper respirator y symptoms, and potential exposure to COVID at a [employer]. At this point patient does not seem to be in any acute distress, she reports being mildly wheezy and congested but denies shortness of breath. Patient is explained that at this point she has to isolate for 7 days, and be retested in 7 days. She can take Tylenol or Motrin for pain or fever. She is also instructed that if she develops significan t shortness of breath, chest pain, intractabl e vomiting or diarrhea she will have to go to emergency department for further care. [id number] Nicole Wong MD [address] [address] 07/11/2021 14:12:46 07/11/2021 15:59:13 Persistent cough [id number] R05.3 COVID-19 [id number] U07.1 Patient with medical history significan t for recent diagnosis of COVID-19 called [facility] clinic for persistent cough. Patient was having productive cough since which is not getting better. Patient was diagnosed with COVID-19 on 07/03/2021 after attending a libertarian where most of the people got tested positive for COVID. According to the patient her cough was productive and the sputum was initially greenish in color. She used Mucinex for 1 week with positive effect. Now her sputum color is whitish in color without any blood in it. She denies any facial tenderness , nasal stuffiness , rhinorrhea . Patient endorses postnasal drip and watery eyes.Patie nt denies any fever, chills, short of breath, chest pain,wheez ing, abdominal pain, diarrhea, anosmia or poor appetite.T his time differenti als is viral respirator y tract infection vs allergic rhinitis. It could be related to her acid reflux. It is unlikely rhinosinus itis or superimpos ed pneumonia in the settings of COVID-19. Patient is vaccinated for covid.Plan We will start her on loratadine 10 mg daily for 1monthGuai fenesin 600mg 2times daily as needed for 7-10 daysPatien t is advised to call us back if her symptoms does not get better. [id number] Nicole Wong MD [address] [place], [place] [address] 07/26/2021 17:18:14 07/30/2021 10:01:55 Persistent cough [id number] R05.3 Ms Reyes is a 35 years old female with PMHx significan t for recent diagnosis of COVID-19, she's COVID vaccinated x2 with booster. She had a telephone appointmen t today d/t c/o persistent productive cough with greenish sputum since she got COVID. Patient was having productive cough since [place] time which initially was productive with greenish sputum, then sputum became clear however, since past few days it has become greenish colored again and there's no blood in sputum. Patient was diagnosed with COVID-19 on 07/03/2021 after attending a libertarian where most of the people got tested positive for COVID (initially she tested negative 5 times around [place]) . She had symptoms of fatigue, body aches, diarrhea, chest pain, productive cough when she was tested positive, did 10 days of quarantine after which she self tested herself for covid at home which was negative. She had a telephone visit on 07/11/21 for same complaint of persistent cough and she was prescribed Mucinex and Loratidine at that time. Today pt set up appointmen t again as she stated both medication s didn't help with cough so she's concerned about infection/ PNA. She does also c/o sore throat secondary to her post-nasal drip, sneezing, chest tightness (using albuterol inhaler 2 puffs daily). However, she denies any facial tenderness , nasal stuffiness , rhinorrhea , fever, chills, SOB, chest pain, anosmia or poor/loss of appetite.S he does c/o consistent fatigue since she got COVID. She didn't get her flu shot.Diffe rentials can be viral upper respirator y tract infection vs allergic rhinitis. It could be related to her acid reflux. Or if her symptoms don't get better in a week, it could be rhinosinus itis or superimpos ed pneumonia in the settings of COVID-19.P t counseled and prescribed following new cough medication s and asked to come to clinic next week if no improvemen t noticed in cough for detailed physical exam and work up.-OTC Robitussin -Tessalon Perles-Cli angel appointmen t in one week if no improvemen t noticed in cough [id number] Nicole Wong MD [address] [address] 01/23/2022 15:07:36 01/23/2022 16:05:07 Low back pain [id number] M54.59 Patient with medical history significan t for L5 radiculopa thy status post surgery presented to the [facility] clinic for low back pain. Patient is having low back pain for last 1 week which is throbbing in nature radiating to her thigh and back of the buttock, worsened by standing and somehow relieved by lying. Patient also complains of numbness and tingling in both lower extremity. She also reported that she is feeling more weak on the left lower extremity. Her sensation is intact. The cause of her low back pain could be related to spinal stenosis, lumbar disc herniation , neuropathy . Less likely fracture as no history of trauma and unlikely cord compressio n as denies any bowel bladder dysfunctio n. Patient was taking 800 mg ibuprofen 3 times daily with Tylenol without significan t relief.Urvashi nStarted on gabapentin 100 mg 3 times dailyWill refer to neurologis Harsha order MRI lumbar spine without contrastWi ll refer her to acupunctur e for pain. Weight gain [id number] R63. 5 Patient had gained 40 pounds in last 1 year. Patient also feels tired in these days. The cause of her weight gain is mainly due to inactivity due to her partial knee left foot drop. Also there is another possibilit y of hypothyroi dism with tiredness. Plan:Will check CMPWill check TSH and T4. [id number] Nicole Wong MD [address] [place] [address] 02/27/2022 13:21:30 02/27/2022 14:33:26 Spinal stenosis of lumbar region [id number] M48.062 MRI done on 02/06/22 remarkable for mild to mod spinal canal stenosis, L5-S1. Left and mild right foraminal stenosis, L1-L2, L3-L4,L4-L 5. Patient is currently using ibuprofen tylenol and gabapentin , heating pad for pain control. [facility] clinic contacted [facility] today and faxed records were received. [facility] neurology will call [facility] within 7 days to discuss patient's referral, after neurologis t reviews records. In the meantime, patient will be referred to physical therapy per her request. Lumbar radiculopathy 128 [id number] M54.16 Patient has been taking the pain medication s below as prescribed . She was due for a refill on her gabapentin today. She will continue to use ibupfrofen and gabapentin in combinatio n with heat therapy as this has been working for her back pain. She is also due for nerve conduction study with [facility] in March. Morbid obesity [id number] E66.01 Patient is very pro-active about her weight loss. She asked for assistance with dietary recommenda tions and expressed interest in weight loss therapy. For this reason she was referred to bariatric medicine and [facility]. As her BMI > 40, she may be a candidate for bariatric surgery. Lymphedema due to chronic inflammation [id number] I89.0 Patient is interested in a pump for her chronic lymphedema of the bilateral lower exts. She has been to the lymphedema clinic in the past however reports that the wrapped bandages, made it difficult to wear her left lower ext brace that was prescribed to help with her left foot drop. Not certain of criteria needed for lymphedema pump, however will refer her to that clinic for another evaluation . 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 Rosmery kay. No identified intracrani al cause on on imaging. Currently being treated with 60mg prednisone to be completed to tomorrow (total 7 days, no taper) and valacyclov ir 1000mg tid for 7 days as well. Neurology already saw patient and are okay with management plan. Encouraged to continue bells palsy care by using eye lubricatio n during the day and tape eye shut at night. Left temporomandibular joint disorder [id number] 5234614 M26.602 Left sided ear pain which started today, with exam showing TMJ tenderness on mouth opening. Ear exam showed some ear wax. No hearing loss. Likely new TMJ developed post Ewen palsy. Maybe unrelated to the bells palsy. She says motrin relieved the pain. She is encouraged to take motrin or tylenol as needed, observe for 2 to 3 days and call office if pain persists. If that happens she may need tooth guard. [id number] Nicole Wong MD [address] [place] [address] 07/29/2022 15:19:11 07/29/2022 16:48:57 Left foot drop [id number] 49014 M21.372 She reports hx of left foot drop sustained in 2018 after L4L5 disc herniation and is requesting a podiatry referral for a night splint. She saw Dr. Drake in the past for this and will be referred back to him. Chronic back pain 465441 002 G89.29 Hx of chronic back pain and reports persistent pain even after extra strength tylenol, gabapentin and ibuprofen. Will refer to pain clinic per patients request to try out steroid injections Body mass index 40+ - severely obese [id number] Z68.42 I spoke to patient regarding bariatric surgery as she is >BMI 40. She did say she tried out for bariatrics surgery before but was unable to lose the amount of weight required to qualify. Patient would like to try out again to see if she will qualify. Will send a referral [id number] Nicole Wong MD [address] [place] [address] 08/26/2022 15:34:47 08/26/2022 16:36:35 Left foot drop [id number] 84374 M21.372 Patient with medical history significan t for left foot drop in the settings of L5 lumbar radiculopa thy status post surgery call the [facility] clinic for worsening left leg weakness and pain. Patient reported that for last 1 month her left leg pain and weakness is getting worse at the point that she is not able to bear any weight.She denies any bowel bladder incontinen ce saddle anesthesia .During her last appointmen t podiatry and pain management clinic referral was sent. Patient had appointmen t on January.Als o patient is following physical therapy. Patient will get a new brace on August from the physical therapist. Today patient called as she is requesting for a cane as she is having trouble with her daily activities .Although neurosurge ry referral was sent patient never got any call from the neurosurge ry.PlanWil l increase gabapentin to 400 mg 3 times dailyWill order ankle-foot orthosisWi ll order caneWill send again neurosurgi annalise referralPa tient can follow-up with PT as she is doing. [id number] Nicole Wong MD [address] [place] [address] 12/24/2022 15:02:31 12/24/2022 16:20:16 Pain in left lower limb [id number] M79.605 37-year-ol d female with longstandi ng history almost 10 years of lumbar radiculopa thy, requiring 2 prior surgeries- discectomi es (2012, 2017). Recently suffered a left displaced fibula fracture for which no surgical interventi on was deemed necessary, she also suffers from left foot drop and wears an AFO brace. Presenting pain in office today-left lower back radiating to groin, and lower leg is suggestive of nerve compressio n. Because she has had no relief with recent ibuprofen, and morphine, we have decided to increase her gabapentin dose today to aid with this neuropathi c pain. Gabapentin was increased to 600 mg 3 times dailyShe was asked to discontinu e morphine, and ibuprofenS he will continue to wear her AFO brace. Due to the patient's decreased mobility for 2-3 months, lymphedema , along with her morbid obesity, I suspect that she is at increased for DVT. She was in agreement to perform ultrasound of the bilateral lower exts to evaluate for clotting. Lumbar radiculopathy 128 021121 M54.16 As noted above she has an extensive history of lumbar radiculopa thy requiring 2 prior surgeries. Although the patient is morbidly obese, and this could be a contributi ng factor to her worsening pain. It would be beneficial given her multiple imaging studies, and ongoing debilitati on, for her to have consultati on with a neurosurge on at this time. Because of this history, and suspected nerve inflammati on, pain unrelieved by several medication s, I will try a course of prednisone and attempts to alleviate some of her lower back painShe was given a 5-day course of prednisone 20 mg 3 times daily.She will also be referred to neurosurge ry at [facility] for additional recommenda tions.She already has a pain management appointmen t scheduled for of this week. Unable to walk [id number] R26.2 [id number] Nicole Wong MD [address] [place] [address] 01/03/2023 08:49:59 01/03/2023 10:22:32 Lumbar radiculopathy [id number] M54.16 Diabetes m bertitus screening 403361783 Z13.1 Patient with medical history of obesity screening for diabetes. Her hemoglobin A1c 5.6. Morbid obesity 198263357 E66.01 Patient has history of morbid obesity with BMI of 60. Patient has L5 lumbar radiculopa thy status post surgery with residual left foot drop. Patient has recent fall which caused left ankle fracture.P atient tries to eat healthy diet. Exercise is kind of difficult for the patient with above-stat ed morbidity. PlanDietit kwesi referralWi ll prescribe ozempic for weight loss Disability affecting daily living 031434327 Z73.6 Patient with medical history significan t for lumbar radiculopa thy status post 2 lumbar spinal surgery with residual left foot drop, recent fall which led to fibular fracture managed conservati vely by orthopedic s in August presented with ongoing left groin pain. Patient reported that after she had a fall and a fracture she started having debilitati ng daily activities . She was initially placed on cast and then switched to boot. Since wearing of the boot patient started having left severe groin pain which is nonradiati ng, no exacerbati ng relieving factor, associated with difficulty of lifting of the left leg. Patient is taking gabapentin 600 mg 3 times daily for her pain with minimal effect.Radha imner is evaluated by neurology at [facility] and plan to do MRI of the hip.Cookie london has neurosurge ry tatyana london scheduled on 01/13. PlanWe will follow-up the MRI of the left hipPatient is excused from her work for 1 month for her debilitati ng daily activities .We will continue the current gabapentin management . Essential hypertension 03291967 I10 Patient BP is elevated. Review of her formerly [facility] ed consistent elevated BP -Will start lisinopril 10 mg daily-2wee ks follow up with to re-check BP-Will order BMP [id number] Elena Gallego[address] [address] 01/06/2023 08:27:00 01/06/2023 09:27:21 Diet education 39000570 Z71.3 Dietary ma nagement surveillance 464722590 Z71.3 Body mass index 40+ - severely obese 121598736 Z68.42 [id number] Judd Gallego [address] [address] 01/20/2023 08:33:52 01/20/2023 08:52:57 Diet education 43177379 Z71.3 Dietary ma nagement surveillance 961524947 Z71.3 Body mass index 40+ - severely obese 957586166 Z68.42 [id number] Nicole Wong MD [address] [place] [address] 02/05/2023 15:03:46 02/05/2023 16:50:45 Left foot drop [id number] 86501 M21.372 Essential hypertension 00237907 I10 Patient was recently diagnosed with hypertensi on and is started on lisinopril 10 mg daily.Balbir thompson the blood pressure is 116/82.Urvashi nWill continue the lisinopril .Discussed with the patient to monitor her blood pressure and if she feels lightheade d and dizzy she can call the office. Lumbar radiculopathy 128 951775 M54.16 Patient with medical history significan t for L5 radiculopa thy status post spinal surgery with residual left foot drop, recent left ankle fracture, hypertensi on presented to the clinic to discuss regarding her MRI. 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 Patient was followed by rheumatolo blaire and elaboratel y discussed about the diagnosis and treatment options. Patient was also followed by orthopedic s. Patient need [employer] paperwork for her disability . Filled out the paperwork for [employer]. She will follow-up with orthopedic s in [place] on 02/22 03/22. [id number] Nicole Wong MD [address] [place] [address] 03/18/2023 14:33:23 03/18/2023 15:43:26 Morbid obesity 054516660 E66.01 The patient came to the clinic to discuss weight loss options. She is experienci ng chronic hip pain and has been advised by her orthopedis t that she cannot undergo surgery until she loses weight. The patient's pain and limited range of motion have led her to use a wheelchair . Weight loss is essential to alleviate her symptoms and allow for effective physical therapy. She is seeking advice on various weight loss options.We recommend focusing on a balanced diet with plenty of fruits and vegetables . Cut back on sugary drinks and processed foods. Also, trying to increase her physical activity gradually, even with limited mobility. Physical therapy can help. And most importantl y, stay patient and consistent .It's important to expedite her weight loss for a faster recovery, especially considerin g concerns about osteoporos is/AVN. Losing weight can significan tly aid in alleviatin g her symptoms and reducing the risk of osteoporos is. Patient denies any recent changes in her medication , no history thyroid issues in the past. will check Hgb A1c and TSH. Advised taking metformin 500 mg daily for 2 weeks then increase to 500 mg twice daily. We're initiating a treatment with [employer] which has shown effectiven ess in assisting with weight loss. Pain of le ft hip joint [id number] 90297 M25.552 Patient was seen by ortho in [place] for severe hip pain which started after sustaining injuryher MRI demonstrat ed bone edema and an effusion consistent with transient osteoporos is of the left hip and there is a concern for AVN.At home she suffered pain to the point where she now needed to walk with a walker. She is using Motrin and Tylenol for pain management . Health Concerns Section Related Observation LastModified by Organization Detai ls LastModified Time None Recorded Concern Status LastModified by Organization Details LastModified Time None Recorded Advance Directives Directive N: Payers Insurance Date Sequence Insurance Name Policy Number Policy Donahue Covered Member ID Donahue Member ID Guarantor Name 01/24/2022 1 [facility] [address] Courtney Reyes [id number] Courtney Reyes 08/27/2022 1 [facility] [employer] 111 Courtney Reyes [id number] Courtney Reyes 02/05/2023 1 [facility] [id number] Courtney Reyes [id number] Courtney Reyes 12/24/2022 1 [facility] (MEDICAID HMO) Courtney Reyes [id number] Courtney Reyes 03/18/2023 1 [place] [facility] Courtney Reyes [id number] Courtney Reyes 03/15/2023 [facility] Courtney Reyes [id number] Courtney Reyes Notes Date Note Type Note Provider Name and Address Organization Details Recorded Time 01/03/2023 text/html ROS as noted in the HPI 37-year-old female with medical history significant for L5 lumbar radiculopathy status post surgery, left foot drop, bipolar disorder came with the complaints of ongoing left groin pain. Patient had a fall on August and had left distal fibular fracture. Her fracture was managed conservatively with cast. Her cast was removed on November and was placed on boot. Patient reported that since first week of November she started having excruciating groin pain which is non-radiating, no aggravating or relieving factor. The pain is so severe it is hampering patient daily activities and she is not able to lift her leg without support. Patient was seen by pain clinic and neurology. MRI of the hip ordered. Nicole Wong MD [address] [place] [address], [phone], [facility] 01/03/2023 12:19:39 02/05/2023 text/html ROS as noted in the [facility] 37-year-old female with medical history significant for left foot drop following a L5 radiculopathy, recently diagnosed hypertension, history of left ankle fracture presented to the clinic to discuss regarding her recent hip MRI and follow-up with hypertension. Daniel david [facility] 02/06/2023 15:08:10 03/18/2023 text/html ROS as noted in the [facility] 37-year-old female with medical history significant for left foot drop from a L5 radiculopathy, hypertension, history of left ankle fracture and hip pain presented to the clinic to discuss regarding different options for weight loss. She saw an orthopedist concerning hip surgery and was advised that she needed to lose a significant amount of weight before undergoing surgery. Estevan david [facility] 03/23/2023 11:47:50 OBGyn Episode No OBEpisode recorded.
== END 2025-05-04 08:23 | disposition home or self-care (01) ==
LOC: HO.HOSX 08:22
PROVIDERS: Visit Provider Physician Assistant
DX: Z13.89 Encounter for screening for other disorder (principal)